=== PATIENT | male | born 1950 | race Caucasian/White ===

== ENCOUNTER → 2016-03-20 | Day surgery (SDC) | payer BC, OTHER ==
[~2016-03-20] VITALS: Ht 172.7 cm; Wt 123.8 kg
[~2016-03-20] MED LIST: ACETAMINOPHEN TAB 650MG DOSE (2X325MG) PO PRN; ALBU83IN INH; ASPI1TAB PO; ASPIRIN 81 MG CHEW TABLET PO ONE; BIMA01SOL OD; BSS with VANC/TOB/EPI for EYE CASES IR ONE; D5W/0.2% SODIUM CHLORIDE 250 ML IV SCH; ESMOLOL INJ 100MG/10ML VIAL As Ordered ONE; LEVALBUTEROL 1.25 MG/0.5 ML CONCENTRATE NEB INH ONE; LIDOCAINE 2% W/EPIN INJ 20ML **PRES FREE As Ordered ONE; LIDOCAINE 2% W/EPIN INJ 20ML **PRES FREE XX ONE; LIDOCAINE 4% INJ 5 ML AMP As Ordered ONE; LIDOCAINE 4% INJ 5 ML AMP OU ONE; LR 500 ML IV ONE; MAXITROL OPHTH OINT 3.5 GM As Ordered ONE; MAXITROL OPHTH OINT 3.5 GM XX ONE; METO50TA2 PO; MIDAZOLAM INJ 2 MG/2 ML VIAL (J2250) As Ordered ONE; OFLOXACIN 0.3 % (OCUFLOX) OPTH SOL 5ML XX ONE; ONDANSETRON 4MG/2ML VIAL (J2405) IV PRN; POVIDONE-IODINE 5% OPHTH PREP SOL 30ML As Ordered ONE; SIMV10TA2 PO; SPIR1CAP INH; fentaNYL 100 MCG/2 ML INJECTION (J3010) As Ordered ONE; hydrALAZINE INJ 20 MG/ML VIAL As Ordered ONE; mitoMYcin (FOR OPHTHALMIC USE) 0.3MG/1ML SYRINGE IN NaCl (J7999) XX ONE
[2016-03-20 15:30] VITALS: BP 119/60
--- NOTE | 2016-03-24 13:43 | RO ---
DATE OF PROCEDURE: 03/20/2016 PREPROCEDURE DIAGNOSIS: Poorly controlled glaucoma, right eye. POSTPROCEDURE DIAGNOSIS: Poorly controlled glaucoma, right eye. 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 INDICATION FOR PROCEDURE: Poorly controlled glaucoma on maximal medical treatment. PROCEDURE: EX-PRESS shunt, version P-50 with mitomycin C 0.3 mg per mL for 2 minutes. SURGEON: Ross Tripathi Jr., DO, FACS INSOLE TACKER: ANESTHESIA: Local, 2% lidocaine with epinephrine and sedation by anesthesia. IMPLANT: EX-PRESS glaucoma filtration device, version P-50. SPECIMENS REMOVED: None. ESTIMATED BLOOD LOSS: Minimal. COMPLICATIONS: None. DESCRIPTION OF PROCEDURE: After obtaining informed consent, the patient was taken to the operating room and prepped and draped in a sterile fashion. A Handy speculum was introduced into the right eye. A #5-0 Vicryl bridle suture was placed through the nasal cornea and rotating the eye downward and inward. This was wrapped around the arm of the Handy lid speculum. Subconjunctival lidocaine with epinephrine was infused underneath the superior conjunctiva. A conjunctiva peritomy fornix-based flap was created. Cautery was applied to the scleral surface as needed for hemostasis. Mitomycin C 0.3 mg per mL was placed underneath the conjunctiva and Tenon's capsule for 2 minutes. The mitomycin C sponges were removed after 2 minutes and the subconjunctival and sub-Tenon's space was irrigated vigorously. Care was taken to prevent any mitomycin C from going on the cornea. Next, a 3 x 3 mm rectangular partial thickness scleral flap was created and dissected into the clear cornea. When the wagner line was identified, a #26 gauge needle was used to create an ostomy into the anterior chamber. The EX-PRESS filtration device was placed. Adequate flow was seen from the devide. The flap was sutured with four #10 nylon sutures. The conjunctiva was closed over the flap with running #5-0 Vicryl and interrupted #10-0 nylon sutures. At the end of the procedure, the eye seemed to have a good pressure. Maxitrol ointment was placed to the eye, bridle suture removed and the Handy speculum removed. The eye was patched and shielded, and the patient returned to the recovery area in excellent condition. He will followup on postoperative day #1.
== END | disposition home or self-care (01) ==
LOC: M SDC 09:29
PROVIDERS: ATTEND Ophthalmology
DX: H40.9 Unspecified glaucoma (principal); I25.2 Old myocardial infarction; I10 Essential (primary) hypertension; E78.00 Pure hypercholesterolemia, unspecified; J44.9 Chronic obstructive pulmonary disease, unspecified; R06.83 Snoring; Z87.891 Personal history of nicotine dependence; Z88.8 Allergy status to other drugs, medicaments and biological substances; Z79.899 Other long term (current) drug therapy; Z79.82 Long term (current) use of aspirin; Z95.5 Presence of coronary angioplasty implant and graft
CPT/HCPCS: 66183; C1783; J2250; J2405; J3010; J7999